=== PATIENT | male | born 1995 | race Caucasian/White ===

== ENCOUNTER 2019-11-08 10:47 | Emergency (ER) | payer BC, OTHER ==
[2019-11-08 10:52] VITALS: BP 131/90; PULSE 80; RESP 18; TEMP 97.6
== END 2019-11-08 11:35 | disposition left against medical advice (07) ==
LOC: EC 10:47
DX: H53.8 Other visual disturbances (principal); Z53.21 Procedure and treatment not carried out due to patient leaving prior to being seen by health care provider
CPT/HCPCS: 99499

== ENCOUNTER 2020-05-14 16:06 | Emergency (ER) | payer BC, OTHER ==
[2020-05-14 16:52] VITALS: BP 130/80; PULSE 79; RESP 18; TEMP 98.3
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
== END 2020-05-14 18:00 | disposition home or self-care (01) ==
LOC: EC 16:06
DX: S51.032A Puncture wound without foreign body of left elbow, initial encounter (principal); S50.311A Abrasion of right elbow, initial encounter; K21.9 Gastro-esophageal reflux disease without esophagitis; F17.200 Nicotine dependence, unspecified, uncomplicated; Z79.899 Other long term (current) drug therapy; V48.5XXA Car driver injured in noncollision transport accident in traffic accident, initial encounter; Y92.410 Unspecified street and highway as the place of occurrence of the external cause
CPT/HCPCS: 99284

== ENCOUNTER → 2020-05-20 | Outpatient (CLI) | payer BC ==
--- NOTE | 2020-05-20 15:14 | XR ---
EXAMINATION TYPE: XR chest 2V DATE OF EXAM: 05/20/2020 COMPARISON: NONE HISTORY: Chest pain TECHNIQUE: Frontal and lateral views of the chest are obtained. FINDINGS: There is no focal air space opacity. No evidence for pneumothorax. No pleural effusion. The cardiac silhouette size is within normal limits. The osseous structures are grossly intact. IMPRESSION: 1. No acute cardiopulmonary process.
== END | disposition home or self-care (01) ==
LOC: RADXRMAIN 14:56
PROVIDERS: ATTEND Family Medicine
DX: R07.9 Chest pain, unspecified (principal)
CPT/HCPCS: 71046